=== PATIENT | female | born 1965 | race Caucasian/White ===

== ENCOUNTER 2019-06-25 18:59 | Emergency (ER) | payer OTHER ==
[~2019-06-25] VITALS: Ht 160 cm; Wt 65.8 kg
[2019-06-25 19:10] VITALS: BP 148/79
--- NOTE | 2019-06-25 19:10 | NUR ---
ED Nurse Note: Patient brought in by emma from [facility] d/t headache. Patient aao x 4 and ambulatory. Patient rates headache 01/13. Patient in stable condition upon assessment.
--- NOTE | 2019-06-25 19:36 | NUR ---
ED Nurse Note: ER PA with patient.
--- NOTE | 2019-06-25 19:36 | NUR ---
ED Nurse Note: Xray at bedside.
--- NOTE | 2019-06-25 20:11 | Emergency Room Report ---
History of Present Illness General Chief Complaint: Headache Source: Patient Present Illness HPI 53 YO Female presents to the ED c/o 02/12 in severity productive cough and states that she has history of diabetes, bronchitis and traumatic brain injury since 1977. Patient states she also needs refills of her medications. She denies headache at this time. Patient is reporting purulent discharge from the right eye. She reports chills but denies fevers. Pt. requests medication refills for Glipizide, Benazepril, Lipitor, Trazodone and Klonopin. She denies Headache as initially triaged. Pt. reports she is "very sick" and has had a productive cough for weeks. Denies hemoptysis. She denies ST. She reports smoking intermittently. She states she is currently living in shelters. She states She normally sees Dr. Camacho at [facility] but she has not been able to get a hold of him recently which is also why she is out of medications. She denies receiving this years flu vaccination. She denies eye pain, loss of vision or decreased visual field. She denies eye fb sensation. She denies use of corrective lens's or contacts. She Denies visual floaters. She denies photophobia. She denies swelling of the LE's or CP. She denies palpitations or dyspnea. She denies abdominal pain or tenderness. She denies polydipsia or polyuria. Allergies: Coded Allergies: No Known Allergies (Unverified , 06/25/19) Patient History Past Medical History: see triage record, other - TBI in 1977 Past Surgical History: none Pertinent Family History: none Now: No Reviewed Nursing Documentation: PMH: Agreed; PSxH: Agreed Review of Systems All Other Systems: negative except mentioned in HPI Physical Exam Vital Signs Date Time Temp Pulse Resp B/P (MAP) Pulse Ox O2 Delivery O2 Flow Rate FiO2 06/25/19 18:55 98.2 118 22 150/72 (98) 96 Room Air Sp02 EP Interpretation: reviewed, normal General Appearance: no apparent distress, alert, GCS 15, non-toxic, other - Disheveled Head: normocephalic, atraumatic Eyes: right eye other - Moderate amount of visible purulent discharge, no soft tissue swelling, crusting or involvement.; bilateral eye normal inspection, bilateral eye PERRL, bilateral eye EOMI ENT: hearing grossly normal, normal pharynx, normal voice, other - Pt. has very poor dentition with multiple missing teeth specifically in the front, and visible dental carries. Neck: full range of motion Respiratory: chest non-tender, lungs clear, normal breath sounds, no respiratory distress, no accessory muscle use, no wheezing, speaking full sentences, other - PT. coughs repeatedly. Cough sounds wet Cardiovascular #1: regular rate, rhythm, no edema Gastrointestinal: non tender, soft, non-distended, no guarding Genitourinary: no CVA tenderness Musculoskeletal: normal range of motion, gait/station normal, non-tender Neurologic: alert, motor strength/tone normal, oriented x3, sensory intact, responsive, speech normal, grossly normal, no focal defects Psychiatric: judgement/insight normal Skin: no rash Medical Decision Making PA Attestation Dr. Fischer is my supervising Physician whom patient management has been discussed with. Diagnostic Impression: Primary Impression: Conjunctivitis Qualified Codes: H10.31 - Unspecified acute conjunctivitis, right eye Additional Impressions: Atypical pneumonia Medication refill ER Course 53 YO Female presents to the ED c/o 02/12 in severity productive cough and states that she has history of diabetes, bronchitis and traumatic brain injury since 1977. Patient states she also needs refills of her medications. She denies headache at this time. Patient is reporting purulent discharge from the right eye. She reports chills but denies fevers. Pt. requests medication refills for Glipizide, Benazepril, Lipitor, Trazodone and Klonopin. She denies Headache as initially triaged. Pt. reports she is "very sick" and has had a productive cough for weeks. Denies hemoptysis. She denies ST. She reports smoking intermittently. She states she is currently living in shelters. She states She normally sees Dr. Camacho at [facility] but she has not been able to get a hold of him recently which is also why she is out of medications. She denies receiving this years flu vaccination. She denies eye pain, loss of vision or decreased visual field. She denies eye fb sensation. She denies use of corrective lens's or contacts. She Denies visual floaters. She denies photophobia. She denies swelling of the LE's or CP. She denies palpitations or dyspnea. She denies abdominal pain or tenderness. She denies polydipsia or polyuria. Ddx considered but are not limited to URI, pneumonia, PE, strep pharyngitis, meningitis, influenza, CHF, pulmonary edema, bronchitis, Viral syndrome, conjunctivitis, eye FB, blepharitis, corneal abrasion just to name a few. Vital signs: Pt. is afebrile, the remaining VS are WNL H&PE are most consistent with URI- no meningeal signs, oropharynx is not involved. Moderate visible purulent d/c in the right eye c/w bacterial conjunctivitis. no periorbital ST involvement. ORDERS: -CXR: WNL ED INTERVENTIONS: None required at this time. --PT. EDUCATION: Proper PCP follow up regularly. DISCHARGE: At this time pt. is stable for d/c to home. Will provide printed patient care instructions, and any necessary prescriptions. Care plan and follow up instructions have been discussed with the patient prior to discharge. Chest X-Ray Diagnostic Results Chest X-Ray Diagnostic Results : Chest X-Ray Ordered: Yes # of Views/Limited/Complete: 1 View Indication: Shortness of Breath EP Interpretation: Yes DEEPTI Xray: Interpretation reviewed, by supervising MD, and agrees with findings. Interpretation: no consolidation, no effusion, no pneumothorax, no acute cardiopulmonary disease Impression: No acute disease Electronically Signed by: Irais Garay PA-C Last Vital Signs Date Time Temp Pulse Resp B/P (MAP) Pulse Ox O2 Delivery O2 Flow Rate FiO2 06/25/19 19:10 98.2 89 20 148/79 94 Room Air Status: improved Disposition: HOME, SELF-CARE Condition: Stable Scripts Ofloxacin (OCUFLOX) 5 Ml Drops 1 DRP OP QID for 7 Days, #5 ML Prov: Irais Garay 06/25/19 Guaifenesin/Dextromethorphan* (Guaifenesin Dm Syrup*) 5 Ml Syrup 5 ML ORAL Q6H PRN for FOR COUGH, #118 ML Prov: Irais Garay 06/25/19 Albuterol Sulfate* (ALBUTEROL SULFATE MDI*) 8.5 Gm Hfa.aer.ad 2 PUFF INH Q3H, #1 INH 0 Refills Prov: Irais Garay 2/20/20 Levofloxacin* (LEVAQUIN*) 750 Mg Tablet 750 MG ORAL DAILY for 5 Days, #5 TAB Prov: Irais Garay 06/25/19 Trazodone Hcl* (DESYREL*) 50 Mg Tablet 50 MG ORAL BEDTIME, #30 TAB Prov: Irais Garay 06/25/19 Atorvastatin Calcium* (LIPITOR*) 10 Mg Tablet 10 MG ORAL DAILY, #30 TAB 0 Refills Prov: Irais Garay 06/25/19 Benazepril Hcl* (BENAZEPRIL HCL*) 10 Mg Tablet 10 MG ORAL DAILY, #30 TAB Prov: Irais Garay 06/25/19 Glipizide* (GLUCOTROL XL*) 10 Mg Tab.er.24 10 MG ORAL ACBREAKFAST, #30 TAB 0 Refills Prov: Irais Garay 06/25/19 Patient Instructions: Upper Respiratory Infection, Adult, [id number] Irais Garay Jun 25, 2019 20:11
--- NOTE | 2019-06-25 20:35 | NUR ---
ED Nurse Note: ER PA with patient
[2019-06-25] MEDS ORDERED: GUAIFENESIN DM118 M1 ORAL (20:44)
[2019-06-25] MEDS ORDERED: ALBUTEROL SULF8.5 GM INH (20:44)
[2019-06-25] MEDS ORDERED: LEVAQUIN750 MG ORAL (20:44)
[2019-06-25] MEDS ORDERED: GLUCOTROL XL10 MG ORAL (20:44)
[2019-06-25] MEDS ORDERED: BENAZEPRIL HCL10 MG ORAL (20:44)
[2019-06-25] MEDS ORDERED: LIPITOR10 MG ORAL (20:44)
[2019-06-25] MEDS ORDERED: TRAZODONE HCL50 MG ORAL (20:44)
[2019-06-25] MEDS ORDERED: OCUFLOX5 ML OP (20:45)
[2019-06-25 20:46] VITALS: BP 139/82
[2019-06-25 21:06] VITALS: BP 139/72
--- NOTE | 2019-06-26 16:57 | Diagnostic Imaging Report ---
Indication: Chest pain Technique: One view of the chest Comparison: none Findings: Lungs and pleural spaces are clear. Heart size is normal. Impression: No acute process
== END 2019-06-25 21:00 | disposition home or self-care (01) ==
LOC: EDBD 18:59 → EMR 20:50
DX: H10.13 Acute atopic conjunctivitis, bilateral (principal); J18.9 Pneumonia, unspecified organism; Z76.0 Encounter for issue of repeat prescription; E11.9 Type 2 diabetes mellitus without complications; Z87.820 Personal history of traumatic brain injury
CPT/HCPCS: 71045; Z7502; 99283